=== PATIENT | male | born 1960 | race American Indian/Alaskan Native ===

== ENCOUNTER 2021-11-30 12:09 | Emergency (ER) | payer BC ==
--- NOTE | 2021-11-30 12:45 | Event Note ---
ED Screening Note ED Screening Note: 61-year-old male presents to the ED complaining right calf pain swelling x2 days. Also states that he has occasional shortness of breath. No shortness of breath at present time denies any chest pain at present time. Patient denies any prior medical history. This initial assessment/diagnostic orders/clinical plan/treatment(s) is/are subject to change based on patients health status, clinical progression and re- assessment by fellow clinical providers in the ED. Further treatment and workup at subsequent clinical providers discretion. Patient/guardian urged not to elope from the ED as their condition may be serious if not clinically assessed and managed. Initial orders include:
--- NOTE | 2021-11-30 13:22 | Vascular Lab Report ---
DUPLEX DOPPLER LOWER EXTREMITY VEINS, RIGHT INDICATION / CLINICAL INFORMATION: right leg pain. TECHNIQUE: Duplex doppler imaging was performed through the veins of the right lower extremity using venous compression and other maneuvers. COMPARISON: None available. FINDINGS: RIGHT COMMON FEMORAL VEIN: Acute thrombus. RIGHT FEMORAL VEIN: Acute thrombus. RIGHT POPLITEAL VEIN: Acute thrombus. RIGHT CALF VEINS: Acute thrombus. ADDITIONAL FINDINGS: None. IMPRESSION: Generalized acute right lower extremity DVT, which appears predominantly nonocclusive. The veterinary technologist notified MERT Xie of these findings at 12:01 FR[employer] on 11/30/2021. Signer Name: Julio Cifuentes MD Signed: 11/30/2021 1:18 PM Workstation Name: [employer]
[2021-11-30 13:35] LABS: Hematocrit 38.9 % (35.5-45.6); Hemoglobin 13.5 gm/dl (11.8-15.2); Mean Corpuscular HGB Conc 35 % (32-34); Mean Corpuscular Volume 84 fl (84-94); Platelet Count 177 K/mm3 (140-440); Red Blood Count 4.62 M/mm3 (3.65-5.03); Red Cell Distribution Width 13.8 % (13.2-15.2)
--- NOTE | 2021-11-30 13:35 | XRay Report ---
CHEST 2 VIEWS INDICATION / CLINICAL INFORMATION: shortness of breath. COMPARISON: None available. FINDINGS: SUPPORT DEVICES: None. HEART / MEDIASTINUM: No significant abnormality. LUNGS / PLEURA: No significant pulmonary abnormality. No significant pleural effusion. No pneumothora x. ADDITIONAL FINDINGS: No significant additional findings. IMPRESSION: 1. No acute abnormality of the chest. Signer Name: Julio Cifuentes MD Signed: 11/30/2021 1:31 PM Workstation Name: [email or web address]
[2021-11-30 13:37] LABS: Alanine Aminotransferase 13 units/L (7-56); Albumin 4.1 g/dL (3.9-5); BUN/Creatinine Ratio 11; Blood Urea Nitrogen 9 mg/dL (9-20); Hemolysis Index 2
[2021-11-30 14:26] LABS: INR 0.9 (0.87-1.13)
[2021-11-30 14:27] LABS: Partial Thromboplastin Time 23.9 Sec. (24.2-36.6)
[2021-12-01] MEDS ORDERED: INSULIN REGULAR, HUMAN 100 UNITS/1 ML IV ONE (11:22)
[2021-12-01] MEDS ORDERED: SODIUM CHLORIDE 0.9% 1000 ML 1,000 ML IV ONE (11:22)
[2021-12-01] MEDS ORDERED: INSULIN REGULAR, HUMAN 100 UNITS/1 ML SUB-Q ONE (11:22)
--- NOTE | 2021-12-01 11:28 | Emergency Department Report ---
ED General Adult HPI - General Chief complaint: Extremity Problem,Nontraumatic Stated complaint: RT LEG PAIN Time Seen by Provider: 12/01/21 10:39 Source: patient Mode of arrival: Ambulatory Limitations: No Limitations - History of Present Illness Initial comments: 61 yo M who denies having any PMH who now present with right lower leg discomfort that is been going on for the last one month. He also reports sob that started this same time. He said he has not seen any doctor in a while. No fever or chills reported. No other modifying or associated factors reported. Severity scale (0 -10): 2 - Related Data Previous Rx's Medication Instructions Recorded Last Taken Type Rivaroxaban [Xarelto Starter Pack] 1 each PO BID 21 Days #42 tab 12/01/21 Unknown Rx metFORMIN [Glucophage] 500 mg PO BID 45 Days #90 tab 12/01/21 Unknown Rx Allergies Allergy/AdvReac Type Severity Reaction Status Date / Time No Known Allergies Allergy Verified 11/30/21 16:39 ED Review of Systems ROS: Stated complaint: RT LEG PAIN Other details as noted in HPI Comment: All other systems reviewed and negative Musculoskeletal: myalgia (right leg pain/ calf pain ) ED Past Medical Hx - Social History Smoking Status: Unknown if ever smoked Substance Use Type: None - Medications Home Medications: Home Medications Medication Instructions Recorded Confirmed Last Taken Type Rivaroxaban [Xarelto Starter Pack] 1 each PO BID 21 Days #42 tab 12/01/21 Unknown Rx metFORMIN [Glucophage] 500 mg PO BID 45 Days #90 tab 12/01/21 Unknown Rx ED Physical Exam - General Limitations: No Limitations General appearance: alert, in no apparent distress - Head Head exam: Present: normal inspection - Eye Eye exam: Present: normal appearance Pupils: Present: normal accommodation - ENT ENT exam: Present: normal exam, normal orophraynx, mucous membranes dry - Neck Neck exam: Present: normal inspection, full ROM. Absent: tenderness - Respiratory Respiratory exam: Present: normal lung sounds bilaterally. Absent: respiratory distress, accessory muscle use - Cardiovascular Cardiovascular Exam: Present: regular rate, normal rhythm, normal heart sounds - GI/Abdominal GI/Abdominal exam: Present: soft, normal bowel sounds. Absent: distended, tenderness - Extremities Exam Extremities exam: Present: normal inspection, full ROM, normal capillary refill, calf tenderness - Back Exam Back exam: Present: normal inspection. Absent: tenderness - Neurological Exam Neurological exam: Present: alert, oriented X3 - Psychiatric Psychiatric exam: Present: normal affect, normal mood - Skin Skin exam: Present: warm, dry, intact ED Course Vital Signs 11/30/21 12/01/21 12/01/21 12:16 06:33 06:35 Temperature 98.5 F 98.2 F Pulse Rate 96 H 75 Respiratory 18 11 L 13 Rate Blood Pressure Blood Pressure 120/88 125/86 [Right] O2 Sat by Pulse 99 98 Oximetry 12/01/21 12/01/21 12/01/21 07:01 07:31 08:01 Temperature Pulse Rate 74 63 64 Respiratory 14 14 12 Rate Blood Pressure 123/78 117/83 123/84 Blood Pressure [Right] O2 Sat by Pulse 97 99 99 Oximetry 12/01/21 12/01/21 12/01/21 08:31 09:01 09:31 Temperature Pulse Rate 60 60 78 Respiratory 12 9 L 11 L Rate Blood Pressure 116/85 110/80 114/74 Blood Pressure [Right] O2 Sat by Pulse 98 100 98 Oximetry 12/01/21 12/01/21 12/01/21 10:01 10:31 11:01 Temperature Pulse Rate 60 58 L 70 Respiratory 11 L 10 L 11 L Rate Blood Pressure 116/84 117/81 108/84 Blood Pressure [Right] O2 Sat by Pulse 98 98 Oximetry 12/01/21 12/01/21 12/01/21 11:31 12:01 12:31 Temperature Pulse Rate 61 57 L 60 Respiratory 14 12 10 L Rate Blood Pressure 122/75 126/86 126/80 Blood Pressure [Right] O2 Sat by Pulse 100 99 Oximetry 12/01/21 12/01/21 12/01/21 13:01 13:31 14:01 Temperature Pulse Rate 56 L 56 L 60 Respiratory 10 L 10 L 10 L Rate Blood Pressure 125/78 124/79 122/80 Blood Pressure [Right] O2 Sat by Pulse 100 99 99 Oximetry - Reevaluation(s) Reevaluation #1: 12/01/21 13:10 Here with right leg pain and noted with elevated blood sugar with no diagnosis of DM-- given Insulin 5 units SQ and IV x 1 and ivf ns 1L bolus x 1-- Pt reports feeling a little better but also noted with elevated d-dimer with abnormal doppler -- confirming DVT-- pt will be discharged home on Metformin and Xarelto with close follow up with his PCP-- ED Medical Decision Making - Lab Data Result diagrams: 11/30/21 12:39 11/30/21 12:39 - Medical Decision Making here with right leg pain which could be as a result of this patient newly di agnosed type 2 DM with blood sugar 566 mg/dl-- vs DVT -- for further evaluation will get CBC, CMP, UA for any other infectious or electrolytes abnormality-- will also check d-dimer for the DVT. With noted abnormal d-dimer coupled with resulted US that was abnormal below FINDINGS: RIGHT COMMON FEMORAL VEIN: Acute thrombus. RIGHT FEMORAL VEIN: Acute thrombus. RIGHT POPLITEAL VEIN: Acute thrombus. RIGHT CALF VEINS: Acute thrombus. ADDITIONAL FINDINGS: None. IMPRESSION: Generalized acute right lower extremity DVT, which appears predominantly nonocclusive. But with noted reassuring vital signs -- will go ahead and start patient on Metformin and Xarelto 15 mg BID x 21 days then 20 mg daily Critical care attestation.: If time is entered above; I have spent that time in minutes in the direct care of this critically ill patient, excluding procedure time. ED Disposition Clinical Impression: Right leg pain Diabetes mellitus Qualifiers: Diabetes mellitus type: type 2 Diabetes mellitus longterm insulin use: unspecified ad terminal makeup operator insulin use status Diabetes mellitus complication status: with other specified complication Qualified Code(s): E11.69 - Type 2 diabetes mellitus with other specified complication Right leg DVT Qualifiers: Affected thrombotic vein of extremity: unspecified vein of extremity Chronicity: acute Qualified Code(s): I82.401 - Acute embolism and thrombosis of unspecified deep veins of right lower extremity Disposition: 01 HOME / SELF CARE / HOMELESS Is pt being admited?: No Does the pt Need Aspirin: No Condition: Stable Instructions: Tips for Eating Away From Home If You Have Diabetes, Type 2 Diabetes Mellitus, Self Care, Adult, [id number], Deep Vein Thrombosis, Diabetes Mellitus and Nutrition, Adult, Diabetes Mellitus Type 2 in Adults (ED) Additional Instructions: It is very important that you take your blood thinner as prescribed to continue to help your symptoms Please call and follow-up with your primary doctor in the next 3 to 5 days for progress Please do not hesitate to call or return to emergency room if your symptoms worsen as this could be a sign complication Prescriptions: metFORMIN [Glucophage] 500 mg PO BID 45 Days #90 tab Rivaroxaban [Xarelto Starter Pack] 1 each PO BID 21 Days #42 tab Referrals: PRIMARY CARE,MD [Primary Care Provider] - 3-5 Days Time of Disposition: 15:03
[2021-12-01 17:20] VITALS: BP 114/88
== END 2021-12-01 16:20 | disposition home or self-care (01) ==
LOC: ED 12:09
DX: I82.401 Acute embolism and thrombosis of unspecified deep veins of right lower extremity (principal); M79.604 Pain in right leg; E11.9 Type 2 diabetes mellitus without complications
CPT/HCPCS: 36415; 71046; 80053; 82962; 85027; 85610; 85730; 93971; 96361; 96372; 96374; 99284; J7030; Q9967; J1815